=== PATIENT | female | born 1985 | race Caucasian/White ===

== ENCOUNTER 2020-06-19 17:28 | Emergency (ER) | payer MEDICAID ==
[2020-06-19] MEDS ORDERED: diphenhydrAMINE 50 MG/ML SDV IVPUSH ONE (17:48)
[2020-06-19] MEDS ORDERED: Sodium Chloride 0.9% 10 ML Syringe FLUSH PRN (17:48)
[2020-06-19] MEDS ORDERED: Sodium Chloride 0.9% 1,000 ML IV ONE (17:48)
[2020-06-19] MEDS ORDERED: Metoclopramide 10 MG/2 ML SDV IVPUSH ONE (17:49)
--- NOTE | 2020-06-19 17:54 | EDM.PDOC ---
ED HPI GENERAL MEDICAL PROBLEM - General Chief Complaint: Headache Stated Complaint: FEVER, NOT FEELING WELL Time Seen by Provider: 06/19/20 17:39 Source of Information: Reports: Patient - History of Present Illness INITIAL COMMENTS - FREE TEXT/NARRATIVE: Laurence is a 34 y/o female who comes to the ER with a 4 day history of a headache. She does have a history of migraine headaches, but does think this feels a bit differently. She took Imitrex this AM, but it did not help her headache. She does not have photophobia but describes more "pressure behind her eyes" when moving them. Also had an irritate throat with congestion that is worse when lying down. She has not any OTC meds due to concerns with interactions with her Xeralto. No fever but she has felt chilled. Headache Pain Score (Numeric/FACES): 6 - Related Data Allergies Allergy/AdvReac Type Severity Reaction Status Date / Time metronidazole [From Flagyl] Allergy Other Verified 06/19/20 17:38 promethazine [From Phenergan] Allergy Other Verified 06/19/20 17:38 plastic tape Allergy Rash Uncoded 06/19/20 17:38 Home Meds: Home Meds Ascorbic Acid [Vitamin C] 500 mg PO DAILY 05/07/20 [History] Cholecalciferol (Vitamin D3) [Vitamin D3] 5,000 unit PO DAILY 05/07/20 [History] ClonazePAM [KlonoPIN] 0.5 mg PO BID 05/07/20 [History] Cyanocobalamin (Vitamin B12) [Vitamin B12] 1,000 mcg PO DAILY 05/07/20 [History] Erenumab-Aooe [Aimovig Autoinjector] 70 mg SQ Q30D 05/07/20 [History] Rivaroxaban [Xarelto] 10 mg PO DAILY 05/07/20 [History] SUMAtriptan [Imitrex] 50 mg PO DAILY PRN 05/07/20 [History] diazePAM [Valium] 10 mg PO ASDIRECTED 05/07/20 [History] medroxyPROGESTERone Acetate [Depo-Provera] 150 mg IM ASDIRECTED 05/07/20 [H istory] Amoxicillin/Clavulanate K [Augmentin 875-125 MG] 1 tab PO BID #20 tablet 06/19/20 [Rx] Past Medical History HEENT History: Reports: Allergic Rhinitis Cardiovascular History: Reports: Blood Clots/VTE/DVT, Other (See Below) Other Cardiovascular History: orthostatic hypotension Gastrointestinal History: Reports: Chronic Constipation Musculoskeletal History: Reports: Osteoarthritis Neurological History: Reports: Migraines Psychiatric History: Reports: Anxiety Endocrine/Metabolic History: Reports: Vitamin D Deficiency Hematologic History: Reports: Anemia, B12 Deficiency, Iron Deficiency Social & Family History - Tobacco Use Tobacco Use Status *Q: Never Tobacco User Review of Systems - Review of Systems Review Of Systems: See Below Constitutional: Reports: Chills Eyes: Reports: Pain (Pressure behind eyes with movement) Ears: Reports: No Symptoms Nose: Reports: Congestion Mouth/Throat: Reports: Painful Swallowing Respiratory: Reports: Cough (mild) Cardiovascular: Reports: No Symptoms GI/Abdominal: Reports: Decreased Appetite Genitourinary: Reports: No Symptoms Musculoskeletal: Reports: No Symptoms Skin: Reports: No Symptoms Neurological: Reports: Headache Psychiatric: Reports: No Symptoms ED EXAM, GENERAL - Physical Exam Exam: See Below General Appearance: Alert, WD/WN, No Apparent Distress (Adult female sitting quietly on ER cart.) Eye Exam: Bilateral Eye: PERRL Ears: Normal External Exam, Normal Canal, Hearing Grossly Normal Ear Exam: Bilateral Ear: TM Dull (with fluid levels noted) Nose: Normal Inspection, No Blood, Nasal Tenderness (over frontal and maxillary regions) Throat/Mouth: Normal Lips, Normal Voice, Other (slightly irritated pharynx) Head: Atraumatic, Normocephalic Neck: Normal Inspection, Supple, Non-Tender Respiratory/Chest: No Respiratory Distress, Lungs Clear, Chest Non-Tender, Other (note mild cough) Cardiovascular: Normal Peripheral Pulses, Regular Rate, Rhythm GI/Abdominal: Normal Bowel Sounds, Soft (Female) Exam: Deferred Rectal (Female) Exam: Deferred Back Exam: Normal Inspection Extremities: Normal Inspection, Normal Range of Motion, Normal Capillary Refill Neurological: Alert, Oriented, CN II-XII Intact, Normal Gait Psychiatric: Normal Affect, Normal Mood Skin Exam: Warm, Dry, Intact, Normal Color Course - Vital Signs Text/Narrative:: [id number] The patient was seen by the CUSTOMER GREETER on arrival to the ER. COVID test ordered since she is quite anxious about this. Will give her a liter of NS and [id number] 20mg IVP and Benadryl 50mg IVP since she has had the headache for 4 days. Would usually given Toradol, but since she is on a blood thinner will not order that at this time. Will plan to treat her for an Sinus infection, but suspect the migraine was aggravated by the sinus infection. 1899 Lab reviewed. COVID test +, results reviewed with the patient and her family. She is feeling a bit better after IV fluids and meds. Will still treat her for a sinusitis with Augmentin. Augmentin 875mg po x 1 dose given. She was given discharge instructions and left the ER in stable condition. Last Recorded V/S: Last Vital Signs Temp 36.9 C 06/19/20 17:30 Pulse 115 H 06/19/20 17:30 Resp 18 06/19/20 17:30 BP 151/96 H 06/19/20 17:30 Pulse Ox 95 06/19/20 17:30 - Orders/Labs/Meds Orders: Active Orders 24 hr Category Date Time Status Sodium Chloride 0.9% [Saline Flush] Med 06/19/20 17:48 Active 10 ml FLUSH ASDIRECTED PRN Saline Lock Insert [OM.PC] Stat Oth 06/19/20 17:48 Ordered Medication Orders Sodium Chloride (Sodium Chloride 0.9% 10 Ml Syringe) 10 ml FLUSH ASDIRECTED PRN PRN Reason: Keep Vein Open Labs: Laboratory Tests 06/19/20 Range/Units 18:16 SARS CoV-2 RNA Rapid DEMOND Positive H (NEGATIVE) Meds: Medications Generic Name Dose Route Start Last Admin Trade Name Freq PRN Reason Stop Dose Admin Sodium Chloride 10 ml 06/19/20 17:48 Sodium Chloride 0.9% 10 Ml Syringe FLUSH ASDIRECTED PRN Keep Vein Open Discontinued Medications Generic Name Dose Route Start Last Admin Trade Name Freq PRN Reason Stop Dose Admin Amoxicillin/Clavulanate Potassium 1 tab 06/19/20 18:53 06/19/20 19:03 Amoxicillin/Clavulanate K 875-125 Mg Tab PO 06/19/20 18:54 1 tab ONETIME ONE Administration Diphenhydramine HCl 50 mg 06/19/20 17:48 06/19/20 17:58 Diphenhydramine 50 Mg/Ml Sdv IVPUSH 06/19/20 17:49 50 mg ONETIME ONE Administration Sodium Chloride 1,000 mls @ 999 mls/hr 06/19/20 17:48 06/19/20 17:55 Normal Saline IV 06/19/20 18:48 999 mls/hr ONETIME ONE Administration Metoclopramide HCl 20 mg 06/19/20 17:49 06/19/20 18:00 Metoclopramide 10 Mg/2 Ml Sdv IVPUSH 06/19/20 17:50 20 mg ONETIME ONE Administration Departure - Departure Time of Disposition: 19:09 Disposition: Home, Self-Care 01 Clinical Impression: Migraine, COVID-19 Acute sinusitis Qualifiers: Sinusitis location: unspecified location Recurrence: not specified as recurrent Qualified Code(s): J01.90 - Acute sinusitis, unspecified - Discharge Information *PRESCRIPTION DRUG MONITORING PROGRAM REVIEWED*: Not Applicable *COPY OF PRESCRIPTION DRUG MONITORING REPORT IN PATIENT JEMIMA: Not Applicable Prescriptions: Amoxicillin/Clavulanate K [Augmentin 875-125 MG] 1 tab PO BID #20 tablet Instructions: 10 Things You Can Do to Manage Your COVID-19 Symptoms at Home - CDC, Migraine Headache, Sinusitis, Adult Referrals: Ana Rosa Moeller SKIN CARVER [Primary Care Provider] - Forms: ED Department Discharge Sepsis Event Note (ED) - Evaluation Sepsis Screening Result: No Definite Risk - Focused Exam Vital Signs: Vital Signs Temp Pulse Resp BP Pulse Ox 06/19/20 17:30 36.9 C 115 H 18 151/96 H 95 - My Orders Last 24 Hours: My Active Orders 06/19/20 17:48 Sodium Chloride 0.9% [Saline Flush] 10 ml FLUSH ASDIRECTED PRN Saline Lock Insert [OM.PC] Stat - Assessment/Plan Last 24 Hours: My Active Orders 06/19/20 17:48 Sodium Chloride 0.9% [Saline Flush] 10 ml FLUSH ASDIRECTED PRN Saline Lock Insert [OM.PC] Stat Assessment:: 1)Migraine Headache 2)Sinusitis 3)COVID+ Plan: -Augmentin 875mg po BID #20 (Rx) -Acetaminophen 325mg 2 tabs oral every 6 hours as needed -Saline nasal rinses with Neti-pot or Amparo-Med rinse bottle -Rest -Stay well hydrated -Return to the clinic if symptoms not better not or come back to the ER for any concerns -Monitor for any symptoms such as fever, shortness of breath, cough, or sore throat. -Continue to social distance yourself as much as possible. -Wash your hands often. -You should quarantine at home for the next 10 days. Someone from the [place] Dept of Health will contact you to follow your symptoms. -There is NO SPECIFIC treatment for Coronavirus. You can use any over the counte r meds that are helpful. You can also discuss use of any antivirals with your PCP.
[2020-06-19] MEDS ORDERED: Amoxicillin/Clavulanate K 875-125 MG Tab PO ONE (18:53)
== END 2020-06-19 19:25 | disposition home or self-care (01) ==
LOC: VM.ED 17:28
DX: U07.1 COVID-19 (principal); J01.90 Acute sinusitis, unspecified; G43.909 Migraine, unspecified, not intractable, without status migrainosus; Z88.1 Allergy status to other antibiotic agents; Z91.048 Other nonmedicinal substance allergy status; Z88.8 Allergy status to other drugs, medicaments and biological substances; Z86.718 Personal history of other venous thrombosis and embolism; Z79.01 Long term (current) use of anticoagulants; Z79.899 Other long term (current) drug therapy
CPT/HCPCS: 96374; 96375; 99283-25; 99284; A9270-GY; J1200; J2765; J7030; U0002

== ENCOUNTER 2020-06-28 11:52 | Emergency (ER) | payer MEDICAID ==
[2020-06-28] MEDS ORDERED: Sodium Chloride 0.9% 10 ML Syringe FLUSH PRN (12:19)
[2020-06-28] MEDS ORDERED: Sodium Chloride 0.9% 1,000 ML IV ONE (12:25)
--- NOTE | 2020-06-28 13:09 | EDM.PDOC ---
ED HPI GENERAL MEDICAL PROBLEM - General Chief Complaint: Respiratory Problem Stated Complaint: CHECKING LUNGS Time Seen by Provider: 06/28/20 12:05 Source of Information: Reports: Patient History Limitations: Reports: No Limitations - History of Present Illness INITIAL COMMENTS - FREE TEXT/NARRATIVE: Pt. presents to ER with complaints of cough, shortness of breath, fever, weak ness, headache, and fatigue secondary to coronavirus. Pt. was diagnosed with this 06/19/2020. Pt. states that she is not improving. She states that she has been experiencing cough since she was diagnosed. Initially it was productive. Now she states that it is quite dry and non-productive. Pt. has a hard time taking a deep breath. Denies any substernal chest or arm pain. Pt. complains of fever and weakness. She has been able to ambulate, but states that she is very weak. She states that when she was diagnosed, she was started on a course of prednisone as well as codeine cough medicine. Denies any nausea, vomiting, or diarrhea. No bloody stools. Denies any sore throat or rhinorrhea. Pt. states that she doesn't think she is getting better, but states that this is the worst she has felt for several days. Onset Date: 06/19/20 Location: Reports: Chest, Generalized - Related Data Allergies Allergy/AdvReac Type Severity Reaction Status Date / Time metronidazole [From Flagyl] Allergy Other Verified 06/28/20 12:09 promethazine [From Phenergan] Allergy Other Verified 06/28/20 12:09 plastic tape Allergy Rash Uncoded 06/28/20 12:09 Home Meds: Home Meds Ascorbic Acid [Vitamin C] 500 mg PO DAILY 05/07/20 [History] Cholecalciferol (Vitamin D3) [Vitamin D3] 5,000 unit PO DAILY 05/07/20 [History] ClonazePAM [KlonoPIN] 0.5 mg PO BID 05/07/20 [History] Cyanocobalamin (Vitamin B12) [Vitamin B12] 1,000 mcg PO DAILY 05/07/20 [History] Erenumab-Aooe [Aimovig Autoinjector] 70 mg SQ Q30D 05/07/20 [History] Rivaroxaban [Xarelto] 10 mg PO DAILY 05/07/20 [History] SUMAtriptan [Imitrex] 50 mg PO DAILY PRN 05/07/20 [History] diazePAM [Valium] 10 mg PO ASDIRECTED 05/07/20 [History] medroxyPROGESTERone Acetate [Depo-Provera] 150 mg IM ASDIRECTED 05/07/20 [History] Amoxicillin/Clavulanate K [Augmentin 875-125 MG] 1 tab PO BID #20 tablet 06/19/20 [Rx] Past Medical History HEENT History: Reports: Allergic Rhinitis Cardiovascular History: Reports: Blood Clots/VTE/DVT, Other (See Below) Other Cardiovascular History: orthostatic hypotension Gastrointestinal History: Reports: Chronic Constipation Musculoskeletal History: Reports: Osteoarthritis Neurological History: Reports: Migraines Psychiatric History: Reports: Anxiety Endocrine/Metabolic History: Reports: Vitamin D Deficiency Hematologic History: Reports: Anemia, B12 Deficiency, Iron Deficiency - Infectious Disease History Infectious Disease History: Reports: Novel Coronavirus Social & Family History - Tobacco Use Tobacco Use Status *Q: Unknown Ever Used Tobacco ED ROS GENERAL - Review of Systems Review Of Systems: See Below Constitutional: Reports: Fever, Chills, Malaise, Weakness, Fatigue HEENT: Reports: No Symptoms Respiratory: Reports: Shortness of Breath, Cough Cardiovascular: Reports: No Symptoms Endocrine: Reports: No Symptoms GI/Abdominal: Reports: No Symptoms : Reports: No Symptoms Musculoskeletal: Reports: Joint Pain, Muscle Pain, Muscle Stiffness Skin: Reports: No Symptoms Neurological: Reports: No Symptoms Psychiatric: Reports: No Symptoms Hematologic/Lymphatic: Reports: No Symptoms Immunologic: Reports: No Symptoms ED EXAM, GENERAL - Physical Exam Exam: See Below Exam Limited By: No Limitations General Appearance: Alert, WD/WN, No Apparent Distress Eye Exam: Bilateral Eye: EOMI, PERRL Head: Atraumatic, Normocephalic Respiratory/Chest: Normal Breath Sounds, No Accessory Muscle Use, Chest Non- Tender, Decreased Breath Sounds Cardiovascular: Normal Peripheral Pulses, Regular Rate, Rhythm, No Edema, No Gallop, No JVD, No Murmur GI/Abdominal: Soft, Non-Tender, No Distention, No Mass (Female) Exam: Deferred Rectal (Female) Exam: Deferred Extremities: Normal Inspection, Normal Range of Motion, Non-Tender, No Pedal Edema, Normal Capillary Refill Neurological: Alert, Oriented, CN II-XII Intact, Normal Cognition, Normal Gait, Normal Reflexes, No Motor/Sensory Deficits Psychiatric: Normal Affect, Normal Mood Skin Exam: Warm, Dry, Intact, Normal Color, No Rash Lymphatic: No Adenopathy Course - Vital Signs Last Recorded V/S: Last Vital Signs Temp 36.2 C 06/28/20 11:54 Pulse 104 H 06/28/20 15:32 Resp 18 06/28/20 15:32 BP 122/85 06/28/20 15:32 Pulse Ox 96 06/28/20 15:32 - Orders/Labs/Meds Orders: Active Orders 24 hr Category Date Time Status Vital Signs [RC] Q15M Care 06/28/20 13:28 Active CULTURE BLOOD [BC] Stat Lab 06/28/20 12:35 Received CULTURE BLOOD [BC] Stat Lab 06/28/20 12:39 Received EPINEPHrine [Adrenalin] Med 06/28/20 13:27 Active 0.3 mg IM ONETIME PRN Famotidine [Pepcid] Med 06/28/20 13:27 Active 20 mg IVPUSH ONETIME PRN Sodium Chloride 0.9% [Saline Flush] Med 06/28/20 12:19 Active 10 ml FLUSH ASDIRECTED PRN Sodium Chloride 0.9% [Saline Flush] Med 06/28/20 13:30 Active 30 ml FLUSH ASDIRECTED diphenhydrAMINE [Benadryl] Med 06/28/20 13:27 Active 50 mg IVPUSH ONETIME PRN methylPREDNISolone Sod Succ [Solu-MEDROL] Med 06/28/20 13:27 Active 125 mg IVPUSH ONETIME PRN Blood Culture x2 Reflex Set [OM.PC] Stat Oth 06/28/20 12:28 Ordered Peripheral IV Insertion Adult [OM.PC] Routine Oth 06/28/20 12:20 Ordered Medication Orders Diphenhydramine HCl (Diphenhydramine 50 Mg/Ml Sdv) 50 mg IVPUSH ONETIME PRN PRN Reason: hypersensitivity reaction Epinephrine HCl (Epinephrine 1 Mg/Ml Sdv) 0.3 mg IM ONETIME PRN PRN Reason: hypersensitivity reaction Famotidine (Famotidine 20 Mg/2 Ml Sdv) 20 mg IVPUSH ONETIME PRN PRN Reason: hypersensitivity reaction Methylprednisolone Sodium Succinate (Methylprednisolone Sodium Succinate 125 Mg/2 Ml Sdv) 125 mg IVPUSH ONETIME PRN PRN Reason: hypersensitivity reaction Sodium Chloride (Sodium Chloride 0.9% 10 Ml Syringe) 10 ml FLUSH ASDIRECTED PRN PRN Reason: Keep Vein Open Sodium Chloride (Sodium Chloride 0.9% 10 Ml Syringe) 30 ml FLUSH ASDIRECTED RAE Labs: Laboratory Tests 06/28/20 06/28/20 06/28/20 Range/Units 12:35 12:35 12:35 WBC 4.2 (4.0-10.0) x10^3/uL RBC 5.18 (4.00-5.50) x10^6/uL Hgb 15.0 (12.0-16.0) g/dL Hct 44.0 (33.0-47.0) % MCV 84.9 (78.0-93.0) fL MCH 29.0 (26.0-32.0) pg MCHC 34.1 (32.0-36.0) g/dL RDW Coeff of Familia 16.3 H (10.0-15.0) % Plt Count 167 (130-400) x10^3/uL Add Manual Diff Yes Neutrophils % (Manual) 73 (50-80) % Lymphocytes % (Manual) 18 L (25-50) % Atypical Lymphs % 4 H (0) % Monocytes % (Manual) 5 (2-11) % Platelet Estimate Adequate PT 11.0 (9.9-12.5) SEC INR 1.0 L (2.0-3.5) APTT (25.6-32.8) SEC D-Dimer, Quantitative (<=0.58) mg/LFEU Sodium 140 (136-145) mmol/L Potassium 3.5 (3.5-5.1) mmol/L Chloride 105 (98-107) mmol/L Carbon Dioxide 20 L (21-32) mmol/L Anion Gap 18.5 H (5-15) mmol/L BUN 9 (7-18) mg/dL Creatinine 1.0 (0.55-1.02) mg/dL Est Cr Clr Drug Dosing TNP Estimated GFR (MDRD) > 60 Glucose 188 H (70-99) mg/dL Lactic Acid (0.4-2.0) mmol/L Calcium 8.8 (8.5-10.1) mg/dL Corrected Calcium 9.28 (8.5-10.1) mg/dL Magnesium 1.9 (1.8-2.4) mg/dL Ferritin (8-252) ng/mL Total Bilirubin 0.4 (0.2-1.0) mg/dL AST 23 (15-37) U/L ALT 30 (14-59) U/L Alkaline Phosphatase 70 (46-116) U/L Lactate Dehydrogenase 186 (81-234) U/L C-Reactive Protein 2.8 H (<=0.9) mg/dL NT-Pro-B Natriuret Pep 40 (<=125) pg/mL Total Protein 8.1 (6.4-8.2) g/dL Albumin 3.4 (3.4-5.0) g/dL Globulin 4.7 Albumin/Globulin Ratio 0.72 06/28/20 06/28/20 06/28/20 Range/Units 12:35 12:35 12:35 WBC (4.0-10.0) x10^3/uL RBC (4.00-5.50) x10^6/uL Hgb (12.0-16.0) g/dL Hct (33.0-47.0) % MCV (78.0-93.0) fL MCH (26.0-32.0) pg MCHC (32.0-36.0) g/dL RDW Coeff of Familia (10.0-15.0) % Plt Count (130-400) x10^3/uL Add Manual Diff Neutrophils % (Manual) (50-80) % Lymphocytes % (Manual) (25-50) % Atypical Lymphs % (0) % Monocytes % (Manual) (2-11) % Platelet Estimate PT (9.9-12.5) SEC INR (2.0-3.5) APTT 31.4 (25.6-32.8) SEC D-Dimer, Quantitative (<=0.58) mg/LFEU Sodium (136-145) mmol/L Potassium (3.5-5.1) mmol/L Chloride (98-107) mmol/L Carbon Dioxide (21-32) mmol/L Anion Gap (5-15) mmol/L BUN (7-18) mg/dL Creatinine (0.55-1.02) mg/dL Est Cr Clr Drug Dosing Estimated GFR (MDRD) Glucose (70-99) mg/dL Lactic Acid 1.2 (0.4-2.0) mmol/L Calcium (8.5-10.1) mg/dL Corrected Calcium (8.5-10.1) mg/dL Magnesium (1.8-2.4) mg/dL Ferritin 503 H (8-252) ng/mL Total Bilirubin (0.2-1.0) mg/dL AST (15-37) U/L ALT (14-59) U/L Alkaline Phosphatase (46-116) U/L Lactate Dehydrogenase (81-234) U/L C-Reactive Protein (<=0.9) mg/dL NT-Pro-B Natriuret Pep (<=125) pg/mL Total Protein (6.4-8.2) g/dL Albumin (3.4-5.0) g/dL Globulin Albumin/Globulin Ratio 06/28/20 Range/Units 12:35 WBC (4.0-10.0) x10^3/uL RBC (4.00-5.50) x10^6/uL Hgb (12.0-16.0) g/dL Hct (33.0-47.0) % MCV (78.0-93.0) fL MCH (26.0-32.0) pg MCHC (32.0-36.0) g/dL RDW Coeff of Familia (10.0-15.0) % Plt Count (130-400) x10^3/uL Add Manual Diff Neutrophils % (Manual) (50-80) % Lymphocytes % (Manual) (25-50) % Atypical Lymphs % (0) % Monocytes % (Manual) (2-11) % Platelet Estimate PT (9.9-12.5) SEC INR (2.0-3.5) APTT (25.6-32.8) SEC D-Dimer, Quantitative 0.21 (<=0.58) mg/LFEU Sodium (136-145) mmol/L Potassium (3.5-5.1) mmol/L Chloride (98-107) mmol/L Carbon Dioxide (21-32) mmol/L Anion Gap (5-15) mmol/L BUN (7-18) mg/dL Creatinine (0.55-1.02) mg/dL Est Cr Clr Drug Dosing Estimated GFR (MDRD) Glucose (70-99) mg/dL Lactic Acid (0.4-2.0) mmol/L Calcium (8.5-10.1) mg/dL Corrected Calcium (8.5-10.1) mg/dL Magnesium (1.8-2.4) mg/dL Ferritin (8-252) ng/mL Total Bilirubin (0.2-1.0) mg/dL AST (15-37) U/L ALT (14-59) U/L Alkaline Phosphatase (46-116) U/L Lactate Dehydrogenase (81-234) U/L C-Reactive Protein (<=0.9) mg/dL NT-Pro-B Natriuret Pep (<=125) pg/mL Total Protein (6.4-8.2) g/dL Albumin (3.4-5.0) g/dL Globulin Albumin/Globulin Ratio Meds: Medications Generic Name Dose Route Start Last Admin Trade Name Freq PRN Reason Stop Dose Admin Diphenhydramine HCl 50 mg 06/28/20 13:27 Diphenhydramine 50 Mg/Ml Sdv IVPUSH ONETIME PRN hypersensitivity reaction Epinephrine HCl 0.3 mg 06/28/20 13:27 Epinephrine 1 Mg/Ml Sdv IM ONETIME PRN hypersensitivity reaction Famotidine 20 mg 06/28/20 13:27 Famotidine 20 Mg/2 Ml Sdv IVPUSH ONETIME PRN hypersensitivity reaction Methylprednisolone Sodium Succinate 125 mg 06/28/20 13:27 Methylprednisolone Sodium Succinate 125 Mg/2 Ml Sdv IVPUSH ONETIME PRN hypersensitivity reaction Sodium Chloride 10 ml 06/28/20 12:19 Sodium Chloride 0.9% 10 Ml Syringe FLUSH ASDIRECTED PRN Keep Vein Open Sodium Chloride 30 ml 06/28/20 13:30 Sodium Chloride 0.9% 10 Ml Syringe FLUSH ASDIRECTED RAE Discontinued Medications Generic Name Dose Route Start Last Admin Trade Name Freq PRN Reason Stop Dose Admin Sodium Chloride 1,000 mls @ 500 mls/hr 06/28/20 12:25 06/28/20 12:42 Normal Saline IV 06/28/20 14:24 500 mls/hr ONETIME ONE Administration Bamlanivimab 700 mg/ 310 mls @ 310 mls/hr 06/28/20 13:27 06/28/20 14:25 Etesevimab 1,400 mg/ Sodium IV 06/28/20 14:26 310 mls/hr Chloride ONETIME ONE Administration - Radiology Interpretation Free Text/Narrative:: No pneumonia noted. - Re-Assessments/Exams Free Text/Narrative Re-Assessment/Exam: Pt. was given a liter or normal saline 1000ml over approx. 2 hours. Pt. was given the Bamlanivimab/Etesevimab infusion. Criteria was BMI greater than 35. Pt. also has a history of DVT in the past. She is anticoagulated. Departure - Departure Time of Disposition: 16:38 Disposition: Home, Self-Care 01 Clinical Impression: COVID-19 - Discharge Information Instructions: COVID-19 Frequently Asked Questions Referrals: Anamaria Arredondo DO [Primary Care Provider] - Forms: ED Department Discharge Additional Instructions: Home to rest. Tylenol for fever/discomfort. Continue with the cough medicine. Return to ER if you have worsening shortness of breath, chest pain, weakness, lightheadedness, or other worrisome signs/symptoms. Quarantine per health dept.direction. Recheck in clinic about 2 weeks after you are off quarantine and feeling better. Sepsis Event Note (ED) - Evaluation Sepsis Screening Result: No Definite Risk - Focused Exam Vital Signs: Vital Signs Temp Pulse Resp BP Pulse Ox 06/28/20 15:32 104 H 18 122/85 96 06/28/20 11:54 36.2 C 129 H 18 150/85 H 95 - Problem List Review Problem List Initiated/Reviewed/Updated: Yes - My Orders Last 24 Hours: My Active Orders 06/28/20 12:19 Sodium Chloride 0.9% [Saline Flush] 10 ml FLUSH ASDIRECTED PRN 06/28/20 12:20 Peripheral IV Insertion Adult [OM.PC] Routine 06/28/20 12:28 Blood Culture x2 Reflex Set [OM.PC] Stat 06/28/20 12:35 CULTURE BLOOD [BC] Stat 06/28/20 12:39 CULTURE BLOOD [BC] Stat 06/28/20 13:27 EPINEPHrine [Adrenalin] 0.3 mg IM ONETIME PRN Famotidine [Pepcid] 20 mg IVPUSH ONETIME PRN diphenhydrAMINE [Benadryl] 50 mg IVPUSH ONETIME PRN methylPREDNISolone Sod Succ [Solu-MEDROL] 125 mg IVPUSH ONETIME PRN 06/28/20 13:28 Vital Signs [RC] Q15M 06/28/20 13:30 Sodium Chloride 0.9% [Saline Flush] 30 ml FLUSH ASDIRECTED - Assessment/Plan Last 24 Hours: My Active Orders 06/28/20 12:19 Sodium Chloride 0.9% [Saline Flush] 10 ml FLUSH ASDIRECTED PRN 06/28/20 12:20 Peripheral IV Insertion Adult [OM.PC] Routine 06/28/20 12:28 Blood Culture x2 Reflex Set [OM.PC] Stat 06/28/20 12:35 CULTURE BLOOD [BC] Stat 06/28/20 12:39 CULTURE BLOOD [BC] Stat 06/28/20 13:27 EPINEPHrine [Adrenalin] 0.3 mg IM ONETIME PRN Famotidine [Pepcid] 20 mg IVPUSH ONETIME PRN diphenhydrAMINE [Benadryl] 50 mg IVPUSH ONETIME PRN methylPREDNISolone Sod Succ [Solu-MEDROL] 125 mg IVPUSH ONETIME PRN 06/28/20 13:28 Vital Signs [RC] Q15M 06/28/20 13:30 Sodium Chloride 0.9% [Saline Flush] 30 ml FLUSH ASDIRECTED Plan: Home to rest. Tylenol for fever/discomfort. Continue with the cough medicine. Return to ER if you have worsening shortness of breath, chest pain, weakness, lightheadedness, or other worrisome signs/symptoms. Quarantine per health dept.direction. Recheck in clinic about 2 weeks after you are off quarantine and feeling better.
[2020-06-28 13:16] LABS: CHLORIDE,CL 105 mmol/L (98-107); SODIUM,NA 140 mmol/L (136-145)
--- NOTE | 2020-06-28 13:16 | CR ---
[id number] RAD/RAD Chest PA or AP 1V EXAM: SINGLE VIEW CHEST. INDICATION: COVID SHORTNESS OF BREATH COMPARISON: NO PREVIOUS SIMILAR EXAM IS AVAILABLE FINDINGS: The lungs are clear The cardiac silhouette is normal The regional bones and soft tissues are unremarkable IMPRESSION: NO PNEUMONIA Zander Chau MD 06/28/20 [id number] Thank you for allowing us to participate in the care of your patient.
[2020-06-28 13:20] LABS: ANION GAP 18.5 mmol/L (5-15)
[2020-06-28] MEDS ORDERED: Famotidine 20 MG/2 ML SDV IVPUSH PRN (13:27)
[2020-06-28] MEDS ORDERED: EPINEPHrine 1 MG/ML SDV IM PRN (13:27)
[2020-06-28] MEDS ORDERED: diphenhydrAMINE 50 MG/ML SDV IVPUSH PRN (13:27)
[2020-06-28] MEDS ORDERED: methylPREDNISolone Sodium Succinate 125 MG/2 ML SDV IVPUSH PRN (13:27)
[2020-06-28] MEDS ORDERED: Sodium Chloride 0.9% 10 ML Syringe FLUSH SCH (13:30)
== END 2020-06-28 16:32 | disposition home or self-care (01) ==
LOC: VM.ED 11:52
DX: U07.1 COVID-19 (principal); Z86.718 Personal history of other venous thrombosis and embolism; Z79.01 Long term (current) use of anticoagulants; Z79.899 Other long term (current) drug therapy; Z91.048 Other nonmedicinal substance allergy status; Z88.1 Allergy status to other antibiotic agents; Z88.8 Allergy status to other drugs, medicaments and biological substances
CPT/HCPCS: 36415; 71045; 80053; 82728; 83605; 83615; 83735; 83880; 85025; 85379; 85610; 85730; 86140; 87040; 99283-25; 99284; J7030; J7050; M0245; Q0239; Q0245

== ENCOUNTER 2020-12-09 03:40 | Emergency (ER) | payer MEDICAID ==
[2020-12-09 04:48] LABS: CHLORIDE,CL 108 mmol/L (98-107); SODIUM,NA 142 mmol/L (136-145)
[2020-12-09 04:49] LABS: ANION GAP 13.4 mmol/L (5-15); PTT,PARTIAL THROMBOPLSTIN TIME 30.5 SEC (25.6-32.8)
--- NOTE | 2020-12-09 05:07 | EDM.PDOC ---
ED HPI GENERAL MEDICAL PROBLEM - General Chief Complaint: Cardiovascular Problem Stated Complaint: Blood clot Time Seen by Provider: 12/09/20 03:55 Source of Information: Reports: Patient History Limitations: Reports: No Limitations - History of Present Illness INITIAL COMMENTS - FREE TEXT/NARRATIVE: PtMoreno presents to ER with concerns that she has a blood clot in her leg. She sta gustavo that she has been experiencing the discomfort in her R calf for about 36 hours. She has a history of previous DVT and PE. She is no xaralto, but states that she missed a dose Wednesday night (the day before the symptoms started). Denies any pallor or duskiness to the extremity. No chest pain or shortness of breath. Denies any back or abdominal pain. No lightheadedness or weakness. Denies any fever or chills. Onset Date: 12/07/20 Location: Reports: Lower Extremity, Right Quality: Reports: Ache Associated Symptoms: Denies: Chest Pain, Cough, Diaphoresis, Fever/Chills, Rash, Shortness of Breath, Syncope, Weakness Right Lower Posterior Leg Pain Score (Numeric/FACES): 5 - Related Data Allergies Allergy/AdvReac Type Severity Reaction Status Date / Time metronidazole [From Flagyl] Allergy Other Verified 06/28/20 12:09 promethazine [From Phenergan] Allergy Other Verified 06/28/20 12:09 plastic tape Allergy Rash Uncoded 06/28/20 12:09 Home Meds: Home Meds Ascorbic Acid [Vitamin C] 500 mg PO DAILY 05/07/20 [History] Cholecalciferol (Vitamin D3) [Vitamin D3] 5,000 unit PO DAILY 05/07/20 [History] ClonazePAM [KlonoPIN] 0.5 mg PO BID 05/07/20 [History] Cyanocobalamin (Vitamin B12) [Vitamin B12] 1,000 mcg PO DAILY 05/07/20 [History] Erenumab-Aooe [Aimovig Autoinjector] 70 mg SQ Q30D 05/07/20 [History] Rivaroxaban [Xarelto] 10 mg PO DAILY 05/07/20 [History] SUMAtriptan [Imitrex] 50 mg PO DAILY PRN 05/07/20 [History] diazePAM [Valium] 10 mg PO ASDIRECTED 05/07/20 [History] medroxyPROGESTERone Acetate [Depo-Provera] 150 mg IM ASDIRECTED 05/07/20 [History] Amoxicillin/Clavulanate K [Augmentin 875-125 MG] 1 tab PO BID #20 tablet 06/19/20 [Rx] Past Medical History HEENT History: Reports: Allergic Rhinitis Cardiovascular History: Reports: Blood Clots/VTE/DVT, Other (See Below) Other Cardiovascular History: orthostatic hypotension Respiratory History: Reports: Other (See Below) Other Respiratory History: COVID Gastrointestinal History: Reports: Chronic Constipation Musculoskeletal History: Reports: Osteoarthritis Neurological History: Reports: Migraines Psychiatric History: Reports: Anxiety Endocrine/Metabolic History: Reports: Vitamin D Deficiency Hematologic History: Reports: Anemia, B12 Deficiency, Iron Deficiency - Infectious Disease History Infectious Disease History: Reports: Novel Coronavirus Social & Family History - Family History Family Medical History: No Pertinent Family History - Tobacco Use Tobacco Use Status *Q: Never Tobacco User Second Hand Smoke Exposure: No - Recreational Drug Use Recreational Drug Use: No ED ROS GENERAL - Review of Systems Review Of Systems: Comprehensive ROS is negative, except as noted in HPI. ED EXAM, GENERAL - Physical Exam Exam: See Below Exam Limited By: No Limitations General Appearance: Alert, WD/WN, No Apparent Distress Respiratory/Chest: No Respiratory Distress, Lungs Clear, Normal Breath Sounds, No Accessory Muscle Use, Chest Non-Tender Cardiovascular: Normal Peripheral Pulses, Regular Rate, Rhythm, No Edema, No Gallop, No JVD, No Murmur, No Rub GI/Abdominal: Soft, Non-Tender, No Organomegaly, No Distention, No Mass (Female) Exam: Deferred Rectal (Female) Exam: Deferred Back Exam: Normal Inspection, Full Range of Motion Extremities: Normal Inspection, Normal Range of Motion, No Pedal Edema, Normal Capillary Refill, Other (Pain on light palpation of R posterolateral calf. No duskiness, mass or pallor noted. No edema noted. ). No: Increased Warmth, Mottled, Pallor, Redness Neurological: Alert, Oriented, CN II-XII Intact, Normal Cognition, Normal Gait, Normal Reflexes, No Motor/Sensory Deficits Course - Vital Signs Last Recorded V/S: Last Vital Signs Temp 36.3 C 12/09/20 03:40 Pulse 75 12/09/20 03:40 Resp 18 12/09/20 03:40 BP 115/70 12/09/20 03:40 Pulse Ox 97 12/09/20 03:40 - Orders/Labs/Meds Labs: Laboratory Tests 12/09/20 12/09/20 12/09/20 Range/Units 04:20 04:20 04:20 WBC 5.6 (4.0-10.0) x10^3/uL RBC 4.27 (4.00-5.50) x10^6/uL Hgb 13.8 (12.0-16.0) g/dL Hct 39.0 (33.0-47.0) % MCV 91.3 (78.0-93.0) fL MCH 32.3 H (26.0-32.0) pg MCHC 35.4 (32.0-36.0) g/dL RDW Coeff of Familia 12.7 (10.0-15.0) % Plt Count 232 (130-400) x10^3/uL Immature Gran % (Auto) 0.00 (0.00-0.43) % Neut % (Auto) 38.8 L (50.0-80.0) % Lymph % (Auto) 51.1 H (25.0-50.0) % Ray % (Auto) 6.9 (2.0-11.0) % Eos % (Auto) 2.7 (0.0-4.0) % Baso % (Auto) 0.5 (0.2-1.2) % Neut # (Auto) 2.2 (1.8-7.7) x10^3/uL Lymph # (Auto) 2.9 (1.0-4.8) x10^3/uL Ray # (Auto) 0.4 (0.0-0.8) x10^3/uL Eos # (Auto) 0.2 (0.0-0.5) x10^3/uL Baso # (Auto) 0.0 (0.0-0.2) x10^3/uL Immature Gran # (Auto) 0.00 (0.00-0.07) x10^3/uL PT 11.7 (9.9-12.5) SEC INR 1.0 L (2.0-3.5) APTT 30.5 (25.6-32.8) SEC D-Dimer, Quantitative 0.21 (<=0.58) mg/LFEU Sodium 142 (136-145) mmol/L Potassium 3.4 L (3.5-5.1) mmol/L Chloride 108 H (98-107) mmol/L Carbon Dioxide 24 (21-32) mmol/L Anion Gap 13.4 (5-15) mmol/L BUN 11 (7-18) mg/dL Creatinine 0.8 (0.55-1.02) mg/dL Est Cr Clr Drug Dosing 107.61 mL/min Estimated GFR (MDRD) > 60 Glucose 108 H (70-99) mg/dL Calcium 8.5 (8.5-10.1) mg/dL Corrected Calcium 9.3 (8.5-10.1) mg/dL Total Bilirubin 0.7 (0.2-1.0) mg/dL AST < 10 L (15-37) U/L ALT 14 (14-59) U/L Alkaline Phosphatase 67 (46-116) U/L Total Protein 6.7 (6.4-8.2) g/dL Albumin 3.0 L (3.4-5.0) g/dL Globulin 3.7 Albumin/Globulin Ratio 0.81 Departure - Departure Time of Disposition: 05:00 Disposition: Home, Self-Care 01 Clinical Impression: Right calf pain Referrals: PCP,None [Primary Care Provider] - Forms: ED Department Discharge Additional Instructions: Home to rest. Tylenol as needed for discomfort. Continue with current medications. Recheck in clinic in 7-10 days. Sepsis Event Note (ED) - Focused Exam Vital Signs: Vital Signs Temp Pulse Resp BP Pulse Ox 12/09/20 03:40 36.3 C 75 18 115/70 97 - Problem List Review Problem List Initiated/Reviewed/Updated: Yes - Assessment/Plan Plan: D dimer was negative. Pt. was reassured. Advised to continue taking her xaralto. Recheck in clinic in 7-10 days. Return to ER if she develops any shortness of breath, lightheadedness, or worsening discomfort in the extremity.
== END 2020-12-09 04:59 | disposition home or self-care (01) ==
LOC: VM.ED 03:40
DX: M79.661 Pain in right lower leg (principal); Z88.1 Allergy status to other antibiotic agents; Z88.8 Allergy status to other drugs, medicaments and biological substances; Z91.048 Other nonmedicinal substance allergy status; Z86.16 Personal history of COVID-19; Z86.718 Personal history of other venous thrombosis and embolism
CPT/HCPCS: 36415; 80053; 85025; 85379; 85610; 85730; 99283

== ENCOUNTER 2022-03-29 12:35 | Emergency (ER) | payer MEDICAID | END 2022-03-29 14:00 | disposition home or self-care (01) | LOC: VM.ED 12:35 | DX: S39.011A Strain of muscle, fascia and tendon of abdomen, initial encounter (principal); F41.9 Anxiety disorder, unspecified; D64.9 Anemia, unspecified; Z79.899 Other long term (current) drug therapy; Z86.16 Personal history of COVID-19; Z91.09 Other allergy status, other than to drugs and biological substances; Z88.8 Allergy status to other drugs, medicaments and biological substances; X58.XXXA Exposure to other specified factors, initial encounter | CPT/HCPCS: 99283 ==

== ENCOUNTER 2022-08-03 17:09 | Emergency (ER) | payer MEDICAID ==
[2022-08-03 17:46] LABS: BASOPHILS PERCENT AUTO 0.3 % (0.2-1.2); EOSINOPHILS ABSOLUTE AUTO 0.1 x10^3/uL (0.0-0.5); EOSINOPHILS PERCENT AUTO 1.4 % (0.0-4.0); HEMATOCRIT 42.6 % (33.0-47.0); HEMOGLOBIN 14.8 g/dL (12.0-16.0); IMMATURE GRAN ABSOLUTE AUTO 0.02 x10^3/uL (0.00-0.07); LYMPHOCYTES ABSOLUTE AUTO 3.2 x10^3/uL (1.0-4.8); LYMPHOCYTES PERCENT AUTO 40.2 % (25.0-50.0); MEAN CORPUSCULAR HEMOGLOBIN 31.8 pg (26.0-32.0); MEAN CORPUSCULAR HGB CONC 34.7 g/dL (32.0-36.0); MEAN CORPUSCULAR VOLUME 91.6 fL (78.0-93.0); MONOCYTES ABSOLUTE AUTO 0.5 x10^3/uL (0.0-0.8); MONOCYTES PERCENT AUTO 6.6 % (2.0-11.0); NEUTROPHILS ABSOLUTE AUTO 4.1 x10^3/uL (1.8-7.7); NEUTROPHILS PERCENT AUTO 51.2 % (50.0-80.0); PLATELET COUNT,PLT 249 x10^3/uL (130-400); RED BLOOD CELL COUNT 4.65 x10^6/uL (4.00-5.50)
[2022-08-03 17:50] LABS: BILIRUBIN,URINE SMALL (NEGATIVE); COLOR,URINE YELLOW (YELLOW); GLUCOSE,URINE NEGATIVE (NEGATIVE); KETONES,URINE TRACE mg/dL (NEGATIVE); LEUKOCYTE ESTERASE,URINE MODERATE (NEGATIVE); NITRITE,URINE NEGATIVE (NEGATIVE); OCCULT BLOOD,URINE TRACE-INTACT (NEGATIVE); PROTEIN,URINE TRACE mg/dL (NEGATIVE)
[2022-08-03 18:00] LABS: APPEARANCE,URINE CLOUDY (CLEAR)
[2022-08-03 18:01] LABS: BACTERIA,URINE MODERATE /HPF (NOT SEEN); MUCUS,URINE RARE /LPF (NOT SEEN); RBC,URINE 0-5 /HPF (NOT SEEN); SQUAMOUS EPITHELIAL CELLS,UR MODERATE /HPF (NOT SEEN)
[2022-08-03 18:14] LABS: A/G RATIO 0.83; ALANINE AMINOTRANSFERASE,ALT 23 U/L (14-59); ALBUMIN 3.4 g/dL (3.4-5.0); ALKALINE PHOSPHATASE 79 U/L (46-116); ASPARTATE AMNIOTRANSFERASE,AST 15 U/L (15-37); BILIRUBIN TOTAL 0.3 mg/dL (0.2-1.0); BLOOD UREA NITROGEN,BUN 13 mg/dL (7-18); CALCIUM 9.4 mg/dL (8.5-10.1); CARBON DIOXIDE,CO2 21 mmol/L (21-32); CHLORIDE,CL 107 mmol/L (98-107); CREATININE 0.9 mg/dL (0.55-1.02); GLUCOSE RANDOM 95 mg/dL (70-99); MAGNESIUM 2.2 mg/dL (1.8-2.4); PHOSPHORUS 3.8 mg/dL (2.6-4.7); PROTEIN TOTAL,TP 7.5 g/dL (6.4-8.2); SODIUM,NA 140 mmol/L (136-145); TSH ULTRASENSITIVE 1.857 uIU/mL (0.358-3.74)
[2022-08-03 18:19] LABS: C-REACTIVE PROTEIN < 0.2 mg/dL (<=0.9); ESTIMATED GFR 83 mL/min (>=60)
[2022-08-03] MEDS ORDERED: Aspirin 81 MG Tab.Chew PO ONE (18:25)
[2022-08-03] MEDS ORDERED: Nitroglycerin 0.4 MG Tab.SL SL ONE (18:25)
[2022-08-03 18:26] LABS: CORONAVIRUS COVID-19 NAA NEGATIVE (NEGATIVE); INFLUENZA A NAA NEGATIVE (NEGATIVE); INFLUENZA B NAA NEGATIVE (NEGATIVE); RESPIRATORY SYNCYTIAL VIR NAA NEGATIVE (NEGATIVE)
[2022-08-03] MEDS: Take Home: Nitrofurantoin Monohydrate/Macrocrystalline 100 MG, 6 Cap Pack PO ONE (18:52)
== END 2022-08-03 18:57 | disposition home or self-care (01) ==
LOC: VM.ED 17:09
DX: N39.0 Urinary tract infection, site not specified (principal); Z86.16 Personal history of COVID-19; Z79.899 Other long term (current) drug therapy; Z20.822 Contact with and (suspected) exposure to COVID-19; Z88.1 Allergy status to other antibiotic agents; Z88.8 Allergy status to other drugs, medicaments and biological substances; Z91.048 Other nonmedicinal substance allergy status
CPT/HCPCS: 0241U; 36415; 80053; 81001; 83735; 84100; 84443; 85025; 86140; 87086; 99284; A9270-GY

== ENCOUNTER 2023-08-06 19:09 | Emergency (ER) | payer MEDICAID | END 2023-08-06 20:04 | disposition home or self-care (01) | LOC: VM.ED 19:09 | DX: M54.2 Cervicalgia (principal); H92.01 Otalgia, right ear; Z86.16 Personal history of COVID-19; Z79.899 Other long term (current) drug therapy; Z79.2 Long term (current) use of antibiotics; Z88.8 Allergy status to other drugs, medicaments and biological substances; Z88.1 Allergy status to other antibiotic agents; Z91.048 Other nonmedicinal substance allergy status | CPT/HCPCS: 99283 ==

== ENCOUNTER 2024-05-02 16:22 | Emergency (ER) | payer MEDICAID | END 2024-05-02 17:55 | disposition home or self-care (01) | LOC: VM.ED 16:22 | DX: S82.64XA Nondisplaced fracture of lateral malleolus of right fibula, initial encounter for closed fracture (principal); Z88.1 Allergy status to other antibiotic agents; Z88.8 Allergy status to other drugs, medicaments and biological substances; Z91.048 Other nonmedicinal substance allergy status; Z79.01 Long term (current) use of anticoagulants; Z79.899 Other long term (current) drug therapy; X50.1XXA Overexertion from prolonged static or awkward postures, initial encounter; Y93.01 Activity, walking, marching and hiking | CPT/HCPCS: 73610-RT; 73630-RT; 99283 ==

== ENCOUNTER 2024-05-07 09:15 | Emergency (ER) | payer MEDICAID ==
[2024-05-07] MEDS ORDERED: Sodium Chloride 0.9% 10 ML Syringe FLUSH PRN (09:26)
[2024-05-07 09:50] LABS: BASOPHILS PERCENT AUTO 0.2 % (0.2-1.2); EOSINOPHILS PERCENT AUTO 0.3 % (0.0-4.0); IMMATURE GRAN ABSOLUTE AUTO 0.01 x10^3/uL (0.00-0.07); LYMPHOCYTES ABSOLUTE AUTO 0.8 x10^3/uL (1.0-4.8); LYMPHOCYTES PERCENT AUTO 11.8 % (25.0-50.0); MEAN CORPUSCULAR HEMOGLOBIN 27.6 pg (26.0-32.0); MEAN CORPUSCULAR HGB CONC 32.4 g/dL (32.0-36.0); MEAN CORPUSCULAR VOLUME 85.1 fL (78.0-93.0); MONOCYTES ABSOLUTE AUTO 0.3 x10^3/uL (0.0-0.8); MONOCYTES PERCENT AUTO 4.3 % (2.0-11.0); NEUTROPHILS ABSOLUTE AUTO 5.5 x10^3/uL (1.8-7.7); NEUTROPHILS PERCENT AUTO 83.2 % (50.0-80.0); PLATELET COUNT,PLT 327 x10^3/uL (130-400); RED BLOOD CELL COUNT 4.35 x10^6/uL (4.00-5.50); WHITE BLOOD CELL COUNT,WBC 6.5 x10^3/uL (4.0-10.0)
[2024-05-07] MEDS: Ondansetron 4 MG/2 ML SDV IVPUSH ONE (09:50)
[2024-05-07] MEDS: Lactated Ringers 1,000 ML IV ONE (09:50)
[2024-05-07 10:04] LABS: A/G RATIO 0.73; ALANINE AMINOTRANSFERASE,ALT 19 U/L (14-59); ALBUMIN 3.3 g/dL (3.4-5.0); ALKALINE PHOSPHATASE 63 U/L (46-116); ANION GAP 16.8 mmol/L (5-15); ASPARTATE AMNIOTRANSFERASE,AST 12 U/L (15-37); BILIRUBIN TOTAL 0.7 mg/dL (0.2-1.0); BLOOD UREA NITROGEN,BUN 13 mg/dL (7-18); CALCIUM 9.1 mg/dL (8.5-10.1); CARBON DIOXIDE,CO2 19 mmol/L (21-32); CHLORIDE,CL 104 mmol/L (98-107); ESTIMATED GFR 73 mL/min (>=60); GLUCOSE RANDOM 142 mg/dL (70-99); LIPASE 33 U/L (19-71); POTASSIUM,K 3.8 mmol/L (3.5-5.1); PROTEIN TOTAL,TP 7.8 g/dL (6.4-8.2); SODIUM,NA 136 mmol/L (136-145)
[2024-05-07] MEDS: Take Home: Ondansetron 4 MG Tab.DIS, 5 Tab Pack PO ONE (11:10)
== END 2024-05-07 11:13 | disposition home or self-care (01) ==
LOC: VM.ED 09:15
DX: R11.2 Nausea with vomiting, unspecified (principal); T38.3X5A Adverse effect of insulin and oral hypoglycemic [antidiabetic] drugs, initial encounter; Z88.1 Allergy status to other antibiotic agents; Z88.8 Allergy status to other drugs, medicaments and biological substances; Z91.048 Other nonmedicinal substance allergy status; Z79.01 Long term (current) use of anticoagulants; Z79.899 Other long term (current) drug therapy; Z86.16 Personal history of COVID-19
CPT/HCPCS: 80053; 83605; 83690; 85025; 96361; 96374; 99284; 99284-25; J2405; J7120; Q0162